=== PATIENT | male | born 1995 | race Caucasian/White ===

== ENCOUNTER 2016-07-22 20:47 | Emergency (ER) | payer OTHER ==
[~2016-07-22] VITALS: Ht 172.7 cm; Wt 59.9 kg
[2016-07-22] MEDS ORDERED: CYCLOBENZAPRINE 10 MG (FLEXERIL) TAB PO STA (23:11)
[2016-07-22] MEDS ORDERED: HYDROcodone/APAP 5 MG/325 MG (LORTAB) TAB PO STA (23:11)
--- NOTE | 2016-07-22 23:17 | ED Back Pain ---
General Chief Complaint: Back Problems Stated Complaint: LOWER BACK PAIN Nursing Triage Note: patient reports intermittent back pain x 9 to 10 years. patient reports pain increased last night. denies taken anything for pain Nursing Sepsis Screen: No Definite Risk History of Present Illness Time Seen by Provider: 23:05 Initial Comments evaluation for chronic and acute low back pain. Patient reports hyperextending his back, approximately 19 years ago he intermittently has recurrence of the back pain. Location: Lumbar Spine Timing/Duration: 2-3 Days Severity: Mild Pain/Injury Location: None Method of Injury: Unknown Modifying Factors: Improves With Immobilization, Improves With Pain Medication (Tylenol with minimal relief, last dose 1400 today), Improves With Rest Associated Symptoms: No loss of bladder control, No loss of bowel control Allergies and Home Medications Allergies Coded Allergies: No Known Drug Allergies (Unverified , 10/24/15) Home Medications Cyclobenzaprine HCl 10 Mg Tablet #12 10 MG PO Q8H PRN PRN sp Prescribed by: MARY AHN on 07/22/162347 Naproxen 500 Mg Tablet #30 500 MG PO BID WITH MEALS PRN PRN PAIN Prescribed by: MARY AHN on 07/22/168 Constitutional: no symptoms reported see HPI EENTM: no symptoms reported see HPI Respiratory: no symptoms reported see HPI Cardiovascular: no symptoms reported see HPI Gastrointestinal: no symptoms reported see HPI Genitourinary: no symptoms reported see HPI Musculoskeletal: see HPI back pain Skin: no symptoms reported see HPI Psychiatric/Neurological: No Symptoms Reported See HPI All Other Systems Reviewed Negative Unless Noted: Yes Past Wekfxaq-Tgfhfa-Kofhyf Hx Patient Social History Alcohol Use: Occasionally Uses Recreational Drug Use: No Smoking Status: Current Everyday Smoker Type Used: Cigarettes Recent Foreign Travel: No Contact w/Someone Who Travel: No Recent Infectious Disease Expo: No Recent Hopitalizations: No Immunizations Up To Date Tetanus Booster (TDap): Less than 5yrs Seasonal Allergies Seasonal Allergies: No Surgeries HX Surgeries: Yes Surgeries: Adenoidectomy, Tonsillectomy Respiratory Hx Respiratory Disorders: No Cardiovascular Hx Cardiac Disorders: No Neurological Hx Neurological Disorders: No Reproductive System Hx Reproductive Disorders: No Genitourinary Hx Genitourinary Disorders: No Gastrointestinal Hx Gastrointestinal Disorders: No Musculoskeletal Hx Musculoskeletal Disorders: Yes Musculoskeletal Disorders: Chronic Back Pain Endocrine Hx Endocrine Disorders: No HEENT HX ENT Disorders: No Cancer Hx Cancer: No Psychosocial Hx Psychiatric Problems: No Integumentary HX Skin/Integumentary Disorder: No Reviewed Nursing Assessment Reviewed/Agree w Nursing PMH: Yes Physical Exam Vital Signs Vital Sign - Last 12Hours 07/22/16 21:32 Temp 98.2 Pulse 89 Resp 18 B/P 109/67 Pulse Ox 100 Capillary Refill : Less Than 3 Seconds General Appearance: No Apparent Distress WD/WN HEENT: PERRL/EOMI TMs Normal Normal ENT Inspection Pharynx Normal Neck: Full Range of Motion Normal Inspection Non Tender Supple Cardiovascular: Regular Rate, Rhythm No Edema Normal Peripheral Pulses Respiratory: Chest Non Tender Lungs Clear Normal Breath Sounds Gastrointestinal: Normal Bowel Sounds No Organomegaly No Pulsatile Mass Non Tender Soft Back: Normal InspectionNo No CVA Tenderness, Decreased Range of Motion Muscle Spasm (paraspinal muscles) Vertebral Tenderness (mid lumbar spine) Extremity: Normal Capillary Refill Normal Inspection Normal Range of Motion Non Tender No Calf Tenderness No Pedal Edema Neurologic/Psychiatric: Alert Oriented x3 No Motor/Sensory Deficits Skin: Normal Color Warm/Dry Lymphatic: No Adenopathy Comments limitation of motion lumbar spine secondary to pain. Normal heel toe gait, full power toe and heel walking. Power V/V L4 to S1. Progress/Results/Core Measures Results/Orders My Orders Orders-MARY AHN Cyclobenzaprine Tablet (Flexeril Tablet) (07/22/16 23:11) Hydrocodone/Apap 5/325 Tablet (Lortab 5 (07/22/16 23:11) Vital Signs/I&O Vital Sign - Last 12Hours 07/22/16 07/22/16 07/22/16 21:32 23:33 23:52 Temp 98.2 98.2 98.2 Pulse 89 87 Resp 18 18 B/P 109/67 Pulse Ox 100 99 Blood Pressure Mean: 81 Progress Note : Time: 23:05 Progress Note initial evaluation completed, will try Flexeril 10 mg and hydrocodone/APAP 5/ 325 mg by mouth with reevaluation after 2340 patient reports improvement in his pain and muscle spasms. Feels he is improved enough to return home Departure Impression Impression: Primary Impression: Back pain Qualified Code: M54.5 - Low back pain Additional Impression: Back strain Qualified Code: S39.012A - Strain of muscle, fascia and tendon of lower back, initial encounter Disposition: 01 HOME, SELF-CARE Condition: Stable Departure-Patient Inst. Decision time for Depature: 23:00 Referrals: NO,LOCAL PHYSICIAN (PCP/Family) Primary Care Physician Patient Instructions: Lumbar Muscle Strain (DC), Low Back Pain (DC) Add. Discharge Instructions: All discharge instructions reviewed with patient and/or family. Voiced understanding. all range of motion to low back, current walking Avoid activities that cause back pain. Establish care with primary care provider, follow up with them for chronic back pain care. return to emergency room for back pain that is not controlled, urinary or bowel retention/incontinence, or change in symptoms Scripts Cyclobenzaprine HCl 10 Mg [id number] Mg PO Q8H PRN sp #12 TAB Ref 0 Prov:MARY AHN 07/22/16 Naproxen (Naprosyn)500 Mg [id number] Mg PO BID WITH MEALS PRN PAIN #30 TAB Ref 0 Prov:MARY AHN 07/22/16 MARY AHN Jul 22, 2016 23:17
[2016-07-22] MEDS ORDERED: CYCL10TA9 PO (23:48)
[2016-07-22] MEDS ORDERED: NAPR500T PO (23:48)
[2016-07-22 23:52] VITALS: BP 111/70
== END 2016-07-22 23:52 | disposition home or self-care (01) ==
LOC: EDUNIT# 20:47 → ER 20:49
DX: S39.012A Strain of muscle, fascia and tendon of lower back, initial encounter (principal); F17.210 Nicotine dependence, cigarettes, uncomplicated; X58.XXXA Exposure to other specified factors, initial encounter; Y99.8 Other external cause status
CPT/HCPCS: 99281

== ENCOUNTER → 2016-08-28 | Outpatient (REF) ==
[~2016-08-28] MED LIST: CYCL10TA9 PO; NAPR500T PO
--- NOTE | 2016-08-28 15:36 | Diagnostic Imaging Report ---
Three views of the lumbar spine. INDICATION: Chronic back pain. FINDINGS: There is satisfactory alignment of the lumbar spine. The vertebral body heights are preserved. Disc heights are also preserved. No significant osteophyte formation is seen. The SI joints appear unremarkable. Paraspinal tissues appear unremarkable. Rudimentary disc is seen at S1/S2 level. IMPRESSION: Unremarkable exam. Dictated by: Dictated on workstation # [id number]
--- NOTE | 2016-08-28 15:37 | Diagnostic Imaging Report ---
EXAMINATION: Three views of the thoracic spine. INDICATION: Chronic back pain. FINDINGS: There is satisfactory alignment of the thoracic spine and the posterior spinal line. The vertebral body heights are preserved. Disc heights are also preserved. No significant osteophyte formation is seen. The paraspinal soft tissues appear unremarkable. IMPRESSION: Unremarkable exam. Dictated by: Dictated on workstation # [id number]
== END | disposition home or self-care (01) ==
LOC: OCC 14:57
PROVIDERS: ATTEND Nurse Practitioner Family
CPT/HCPCS: 72072; 72100

== ENCOUNTER 2016-11-10 18:05 | Emergency (ER) | payer OTHER ==
[~2016-11-10] VITALS: Ht 175.3 cm; Wt 63.5 kg
--- NOTE | 2016-11-10 18:19 | ED Upper Extremity ---
General Chief Complaint: Upper Extremity Stated Complaint: L HAND INJ Source: patient Exam Limitations: no limitations History of Present Illness Time seen by provider: 18:18 Initial Comments To ER from home with reports of pain and deformity to the left hand after punching a wall. This occurred earlier today. Onset: just prior to arrival Severity: moderate Pain/Injury Location: left hand Method of Injury: direct blow Modifying Factors: Worse With Movement Allergies and Home Medications Allergies Coded Allergies: No Known Drug Allergies (Unverified , 10/24/15) Home Medications No Active Prescriptions or Reported Meds Constitutional: see HPI EENTM: see HPI Respiratory: no symptoms reported Cardiovascular: no symptoms reported Genitourinary: no symptoms reported Musculoskeletal: see HPI Skin: no symptoms reported Psychiatric/Neurological: No Symptoms Reported Past Efyjutq-Gmexak-Axsckz Hx Patient Social History Alcohol Use: Occasionally Uses Recreational Drug Use: No Type Used: Cigarettes Recent Foreign Travel: No Contact w/Someone Who Travel: No Recent Hopitalizations: No Immunizations Up To Date Tetanus Booster (TDap): Less than 5yrs Seasonal Allergies Seasonal Allergies: No Surgeries HX Surgeries: Yes Surgeries: Adenoidectomy, Tonsillectomy Respiratory Hx Respiratory Disorders: No Cardiovascular Hx Cardiac Disorders: No Neurological Hx Neurological Disorders: No Reproductive System Hx Reproductive Disorders: No Genitourinary Hx Genitourinary Disorders: No Gastrointestinal Hx Gastrointestinal Disorders: No Musculoskeletal Hx Musculoskeletal Disorders: Yes Musculoskeletal Disorders: Chronic Back Pain Endocrine Hx Endocrine Disorders: No HEENT HX ENT Disorders: No Cancer Hx Cancer: No Psychosocial Hx Psychiatric Problems: No Integumentary HX Skin/Integumentary Disorder: No Physical Exam Vital Signs Vital Sign - Last 12Hours 11/10/16 18:15 Temp 97.4 Pulse 98 Resp 18 B/P (MAP) 116/72 Pulse Ox 94 Capillary Refill : General Appearance: WD/WN, no apparent distress HEENT: PERRL/EOMI, normal ENT inspection Neck: non-tender, full range of motion Respiratory: no respiratory distress, no accessory muscle use Gastrointestinal: normal bowel sounds, non tender, soft Back: normal inspection Elbow/Forearm: normal inspection, non-tender, Left Wrist: Yes normal inspection, Yes non-tender Hand: Left, deformity, limited ROM, soft tissue tenderness Neurologic/Tendon: normal sensation, normal motor functions, normal tendon functions Neurologic/Psychiatric: alert, normal mood/affect, oriented x 3 Skin: normal color, warm/dry Progress/Results/Core Measures Results/Orders My Orders Orders - WALDEMAR ESPINO APRN Hand, Left, 3 Views (11/10/16 18:16) Vital Signs/I&O Vital Sign - Last 12Hours 11/10/16 18:15 Temp 97.4 Pulse 98 Resp 18 B/P (MAP) 116/72 Pulse Ox 94 Departure Impression Impression: Primary Impression: Contusion of hand Disposition: HOME, SELF-CARE Condition: Stable Decision to Admit Reason: Admit from ER (General) Departure-Patient Inst. Decision time for Depature: 18:36 Referrals: NO,LOCAL PHYSICIAN (PCP/Family) Primary Care Physician Patient Instructions: Contusion (DC) Add. Discharge Instructions: 1. Elevate the hand as much as possible 2. Return to ER for any concerns 3. Tylenol Motrin for pain All discharge instructions reviewed with patient and/or family. Voiced understanding. Scripts No Active Prescriptions or Reported Meds WALDEMAR ESPINO APRN Nov 10, 2016 18:19
--- NOTE | 2016-11-10 19:00 | Diagnostic Imaging Report ---
INDICATION: Injury, hand pain. EXAMINATION: Left hand at 6:21 p.m. Three views were obtained. FINDINGS: The previous exam of 09/07/2007 noted a slightly displaced fracture of the distal phalanx of the fourth digit. That fracture has healed with some residual deformity. There is no acute bony abnormality identified. There does seem be soft tissue edema along the dorsum of the hand, however. IMPRESSION: There is soft tissue edema along the dorsum of the hand but there is no evidence for an acute bony abnormality. Dictated by: Dictated on workstation # [id number]
[2016-11-10 19:01] VITALS: BP 110/64
--- OUTSIDE RECORDS SUMMARY | 2016-11-13 13:46 | XMS REPORT ---
Author Author NIKA SHARMA Organization [employer] Address Unknown Phone Unavailable Care Team Providers Care Claims Correspondence Clerk Name Role Phone NIKA SHARMA CP Unavailable Allergies, Adverse Reactions, Alerts Substance Reaction Event Type N.K.D.A. Info Not Available Non Drug Allergy Problems Problem Type Condition Code Onset Dates Condition Status Assessment Dental caries K02.9 Active Assessment Dental examination Z01.20 Active Medications Medication Code System Code Instructions Start Date End Date Status Dosage [facility] [id number] 5-325 MG Orally every 6 hrs Mar 09, 2015 Mar 13, 2015 1 tablet as needed Procedures Procedure Coding System Code Date INTRAORL-PERIAPICAL EA ADD FILM CPT-4 D0230 Mar 09, 2015 EXTRAC ERUPTED TOOTH/EXPOSED ROOT CPT-4 D7140 Mar 09, 2015 INTRAORL-PERIAPICAL 1 FILM 24633 CPT-4 D0220 Mar 09, 2015 Vital Signs Date/Time: Mar 09, 2015 Blood Pressure Diastolic 84 mmHg Blood Pressure Systolic 133 mmHg Results No Known Results Summary Purpose [employer] Submission
== END 2016-11-10 19:01 | disposition home or self-care (01) ==
LOC: EDUNIT# 18:05 → ER 18:07
DX: S60.222A Contusion of left hand, initial encounter (principal); F17.210 Nicotine dependence, cigarettes, uncomplicated; Z90.89 Acquired absence of other organs; W22.01XA Walked into wall, initial encounter
CPT/HCPCS: 73130; 99282

== ENCOUNTER 2017-01-05 22:54 | Emergency (ER) | payer OTHER ==
[~2017-01-05] VITALS: Ht 172.7 cm; Wt 58.1 kg
--- NOTE | 2017-01-05 23:33 | ED Upper Extremity ---
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 He says he is having quite a bit of pain. He also has some numbness and tingling in the fourth and fifth digits. He has a little bit of swelling in his elbow and tenderness along the distal portion of his humerus. But otherwise can move his arm okay. He has not taken have broken Tylenol or ice for until arriving to the ER. No history of trauma to that arm. He is right-handed. Allergies and Home Medications Allergies Coded Allergies: No Known Drug Allergies (Unverified , 10/24/15) Home Medications No Active Prescriptions or Reported Meds Constitutional: No chills, No diaphoresis, No fever EENTM: No blurred vision, No double vision Respiratory: No cough Cardiovascular: No chest pain, No palpitations Gastrointestinal: No abdominal pain, No nausea Genitourinary: No discharge, No dysuria Musculoskeletal: see HPI, joint pain Skin: No pruritus, No rash, other (bruising) Psychiatric/Neurological: Denies Numbness, Denies Paresthesia Past Iqvuinu-Gfcroh-Ondzwb Hx Patient Social History Alcohol Use: Rarely Uses Recreational Drug Use: No Smoking Status: Current Everyday Smoker Type Used: Cigarettes Recent Foreign Travel: No Contact w/Someone Who Travel: No Recent Infectious Disease Expo: No Recent Hopitalizations: No Physical Abuse: No Sexual Abuse: No Immunizations Up To Date Tetanus Booster (TDap): Less than 5yrs Seasonal Allergies Seasonal Allergies: No Surgeries History of Surgeries: Yes Surgeries: Adenoidectomy, Tonsillectomy Respiratory History of Respiratory Disorde: No Cardiovascular History of Cardiac Disorders: No Neurological History of Neurological Disord: No Reproductive System Hx Reproductive Disorders: No Gastrointestinal History of Gastrointestinal Di: No Musculoskeletal History of Musculoskeletal Dis: Yes Musculoskeletal Disorders: Chronic Back Pain Endocrine History of Endocrine Disorders: No Cancer History of Cancer: No Psychosocial History of Psychiatric Problem: No Suicide Risk Score: 0 Integumentary History of Skin or Integumenta: No Physical Exam Vital Signs Vital Sign - Last 12Hours 01/05/17 23:10 Temp 98.0 Pulse 79 Resp 18 B/P (MAP) 114/71 Pulse Ox 99 Capillary Refill : Less Than 3 Seconds General Appearance: WD/WN, no apparent distress HEENT: PERRL/EOMI Neck: non-tender, normal inspection Cardiovascular: normal peripheral pulses, regular rate, rhythm, no edema Respiratory: lungs clear, normal breath sounds Gastrointestinal: non tender, soft Elbow/Forearm: normal ROM, Left, bone tenderness, ecchymosis, swelling Wrist: Yes normal inspection, Yes non-tender, Yes no evidence of injury, Yes normal ROM, Yes abrasions Hand: normal inspection, non-tender, no evidence of injury, normal ROM Neurologic/Tendon: normal sensation, normal motor functions, normal tendon functions, responds to pain Neurologic/Psychiatric: no motor/sensory deficits, alert, oriented x 3 Skin: normal color, warm/dry Progress/Results/Core Measures Results/Orders My Orders Orders - KAYLA VINCENT Humerus, Left, 2 Views (01/05/17 23:31) Finger(S) (01/05/17 23:31) Vital Signs/I&O Vital Sign - Last 12Hours 01/05/17 01/06/17 23:10 00:31 Temp 98.0 Pulse 79 78 Resp 18 18 B/P (MAP) 114/71 Pulse Ox 99 98 Blood Pressure Mean: 85 Diagnostic Imaging Diagonstic Imaging: Xray Plain Films/CT/US/NM/MRI: other (left humerus and hand) Comments No acute osseous adamantly seen on left humerus 2 view x-ray. Left fingers may show a very minor avulsion dorsal fracture of the fourth digit distal phalangeal distal tip. Reviewed: Reviewed by Me Departure Impression Impression: Primary Impression: Fracture of phalanx of hand Qualified Codes: S62.609A - Fracture of unspecified phalanx of unspecified finger, initial encounter for closed fracture Disposition: 01 HOME, SELF-CARE Condition: Stable Departure-Patient Inst. Decision time for Depature: 00:27 Referrals: NO,LOCAL PHYSICIAN (PCP/Family) Primary Care Physician Patient Instructions: Finger Fracture (DC) Add. Discharge Instructions: Wear the splint for 2 weeks and follow up with her primary care physician as needed. Do not lift more than 20 pounds in the next 2 weeks with your left arm. Ice the area and use Tylenol 1000 mg or ibuprofen 800 mg every 8 hours as needed to control the pain. If your pain swelling or redness is getting worse despite these efforts return to your physician or to the ER. All discharge instructions reviewed with patient and/or family. Voiced understanding. Scripts No Active Prescriptions or Reported Meds Work/School Note: Work Release Form Date Seen in the Emergency Department: Jan 06, 2017 Return to Work: Jan 07, 2017 Other Restrictions Listed Below: Do not lift above 20 pounds with your left arm for the next 2 weeks. KAYLA VINCENT Jan 05, 2017 23:33
[2017-01-06 00:31] VITALS: BP 114/71
--- NOTE | 2017-01-06 08:21 | Diagnostic Imaging Report ---
INDICATION: Left arm pain. COMPARISON: None. FINDINGS: 2 views of the left humerus show no fractures, dislocations, or other acute bony abnormalities identified. Joint spaces are well maintained throughout. The soft tissues appear unremarkable. No radiopaque foreign bodies are identified. IMPRESSION: No acute fractures or dislocations of the left humerus. Dictated by: Dictated on workstation # [id number]
--- NOTE | 2017-01-06 08:45 | Diagnostic Imaging Report ---
INDICATION: Caught fingers in drain snake at work. Pain in upper left arm and third and fourth digits. COMPARISON: 09/07/2007, and 11/10/2016. COMPARISON: None. FINDINGS: 3 views of the left third and fourth digits show no fractures, dislocations, or other acute bony abnormalities identified. Joint spaces are well maintained throughout. The soft tissues appear unremarkable. No radiopaque foreign bodies are identified. IMPRESSION: No acute fractures or dislocations of the left third and fourth digits. Dictated by: Dictated on workstation # [id number]
== END 2017-01-06 00:33 | disposition home or self-care (01) ==
LOC: EDUNIT# 22:54 → ER 22:56
DX: S62.635A Displaced fracture of distal phalanx of left ring finger, initial encounter for closed fracture (principal); G89.29 Other chronic pain; M54.9 Dorsalgia, unspecified; F17.210 Nicotine dependence, cigarettes, uncomplicated; Z90.89 Acquired absence of other organs; W59.1 Contact with nonvenomous snakes; Y99.0 Civilian activity done for income or pay
CPT/HCPCS: 73060; 73140; 99282

== ENCOUNTER 2018-10-05 22:55 | Emergency (ER) | payer SELFPAY ==
[~2018-10-05] VITALS: Ht 172.7 cm; Wt 65.8 kg
[~2018-10-05 22:55] MED LIST changes: +NAPR-1071 PO; -NAPR500T PO
[2018-10-05] MEDS ORDERED: TETANUS,DIPTH,PERTUSS P/F (BOOSTRIX) 0.5 ML VIAL IM ONE (23:15)
--- NOTE | 2018-10-05 23:37 | ED Fall/Injury ---
General Chief Complaint: Upper Extremity Stated Complaint: L ARM LACERATION,L HAND INJ Nursing Triage Note: PT STATES THAT HE HAD A FALL PRIOR TO ARRIVAL. PT STATES HE TRIPPED UP THE STAIRS AND LANDED ON LEFT ELBOW/HAND. PT DENIES LOC OR HITTING HEAD. Source: patient Exam Limitations: no limitations History of Present Illness Date Seen by Provider: October 05, 2018 Time Seen by Provider: 22:58 Initial Comments This 23-year-old man presents to the emergency room with injuries to his left hand and elbow after slipping and falling on the stairs of his porch. He has be en drinking alcohol tonight but is alert and oriented. He struck his elbow in his hand but denies any other injury. He did not strike his head or neck. There was no loss of consciousness. He primarily complains of pain in the distal central hand where he has swelling on the dorsal aspect. He has pain with range of motion. There is no abrasion over his elbow and he has some te nderness over the olecranon. He does not know when his last tetanus immunization was. Allergies and Home Medications Allergies Coded Allergies: No Known Drug Allergies (Unverified , 10/24/15) Home Medications No Active Prescriptions or Reported Meds Patient Home Medication List Home Medication List Reviewed: Yes Review of Systems Review of Systems Constitutional: see HPI Eyes: No Symptoms Reported Ears, Nose, Mouth, Throat: no symptoms reported Respiratory: no symptoms reported Cardiovascular: no symptoms reported Gastrointestinal: no symptoms reported Genitourinary: no symptoms reported Musculoskeletal: see HPI Skin: see HPI Psychiatric/Neurological: No Symptoms Reported Past Focztvl-Ixobjt-Oaviii Hx Past Med/Social Hx: Reviewed Nursing Past Med/Soc Hx Patient Social History Alcohol Use: Regular Use Alcohol Beverage of Choice: Beer Recreational Drug Use: No Smoking Status: Current Everyday Smoker Type Used: Cigarettes Recent Foreign Travel: No Contact w/Someone Who Travel: No Recent Infectious Disease Expo: No Recent Hopitalizations: No Physical Abuse: No Sexual Abuse: No Mistreated: No Fear: No Immunizations Up To Date Tetanus Booster (TDap): Less than 5yrs Seasonal Allergies Seasonal Allergies: No Past Medical History Surgeries: Yes Adenoidectomy, Tonsillectomy Respiratory: No Cardiac: No Neurological: No Reproductive Disorders: No Gastrointestinal: No Musculoskeletal: Yes Chronic Back Pain Endocrine: No Cancer: No Psychosocial: No Integumentary: No Physical Exam Vital Signs Vital Signs - First Documented 10/05/18 23:05 Temp 97.6 Pulse 117 Resp 18 B/P (MAP) 124/77 (93) Pulse Ox 95 Capillary Refill : Less Than 3 Seconds Height, Weight, BMI Height: 5'8.00" Weight: 145lbs. oz. 65.570815iu; BMI Method:Stated General Appearance: WD/WN, no apparent distress, thin HEENT: PERRL/EOMI, normal ENT inspection Neck: normal inspection Cardiovascular: regular rate, rhythm, no edema, no murmur Respiratory: lungs clear, normal breath sounds, no respiratory distress, no accessory muscle use Extremities: other (ecchymosis, tenderness, and swelling over the dorsal aspect of the distal third and fourth metacarpals on the left. Pain with flexion and extension of the fingers. Distal sensation and capillary refill intact. Tenderness over the olecranon. Abrasions over the elbow. No significant pain with range of motion in the elbow or with rotation of the wrist. No tenderness or pain in the wrist. 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, no motor/sensory deficits, alert, normal mood/affect, oriented x 3 Skin: normal color, warm/dry, ecchymosis Maritza Coma Score Best Eye Response: (4) Open Spontaneously Best Verbal Response: (5) Oriented Best Motor Response: (6) Obeys Commands [place] Total: 15 Progress/Results/Core Measures Results/Orders My Orders Orders - JAVIER ROCHE MD Dipht,Pertuss(Acell),Tet Adult (Boostrix (10/05/18 23:15) Elbow, Left, 3 Views (10/05/18 23:04) Hand, Left, 3 Views (10/05/18 23:04) Medications Given in ED Current Medications Medications Dose Ordered Sig/Oli Route Start Time Stop Time Status Last Admin Dose Admin Diphtheria/ Tetanus/Acell Pertussis 0.5 ml ONCE ONCE IM 10/05/18 23:15 10/05/18 23:16 DC 10/05/18 23:18 0.5 ML Vital Signs/I&O 10/05/18 23:05 Temp 97.6 Pulse 117 Resp 18 B/P (MAP) 124/77 (93) Pulse Ox 95 Blood Pressure Mean: 93 Progress Progress Note : Progress Note No bony injuries were identified on the x-rays. Patient received a tetanus immunization. The abrasions on the left elbow were scrubbed with chlorhexidine and water. They were dressed with antibiotic ointment. Diagnostic Imaging Diagonstic Imaging: Xray Plain Films/CT/US/NM/MRI: hand Comments Hand x-ray viewed by me. Report not yet available. No acute dislocations or bony injuries identified. Diagonstic Imaging: Xray Plain Films/CT/US/NM/MRI: elbow Comments Elbow x-ray viewed by me. There was a questionable deformity on the oblique view. Images were sent to [facility] and were read as negative. [facility] report reviewed. Departure Impression Primary Impression: Hand contusion Qualified Codes: S60.222A - Contusion of left hand, initial encounter Additional Impressions: Elbow contusion Qualified Codes: S50.02XA - Contusion of left elbow, initial encounter Elbow abrasion Qualified Codes: S50.312A - Abrasion of left elbow, initial encounter Fall on stairs Qualified Codes: W10.9XXA - Fall (on) (from) unspecified stairs and steps, initial encounter Disposition: HOME, SELF-CARE Condition: Improved Admissions Decision to Admit Reason: Admit from ER (Trauma) Departure-Patient Inst. Decision time for Depature: 23:46 Referrals: NO,LOCAL PHYSICIAN (PCP/Family) Primary Care Physician Patient Instructions: Contusion (DC) Add. Discharge Instructions: Increase level of activity as pain allows. Apply ice in 20 minute intervals to treat pain and swelling. You may take Ibuprofen up to 600 mg every 6 hours as needed and Tylenol (acetaminophen) up to 1000 mg every 6 hours as needed for pain. Follow-up with your primary care provider or the ER if not improving as expected or if symptoms worsen. All discharge instructions reviewed with patient and/or family. Voiced understanding. Scripts No Active Prescriptions or Reported Meds JAVIER ROCHE MD October 05, 2018 23:37
[2018-10-06 00:07] VITALS: BP 124/77
--- NOTE | 2018-10-06 06:59 | Diagnostic Imaging Report ---
INDICATION: Injury with pain FINDINGS: There is soft tissue swelling over the dorsum of the hand at the levels of the distal metacarpals and MCPs. No underlying fracture, however, can be identified. Carpus, the distal radius and ulna all appeared intact. The phalanges intact. IMPRESSION: Dorsal swelling but no identifiable fracture. Dictated by: Dictated on workstation # [id number]
--- NOTE | 2018-10-06 07:01 | Diagnostic Imaging Report ---
INDICATION: Fall, pain FINDINGS: No pathologically displaced fat pad. The articular surface is smooth. The alignment anatomic. No fracture could be identified. IMPRESSION: No acute finding radiographically apparent. Dictated by: Dictated on workstation # [id number]
== END 2018-10-06 00:08 | disposition home or self-care (01) ==
LOC: EDUNIT# 22:55 → ER 22:57
DX: S60.222A Contusion of left hand, initial encounter (principal); S50.312A Abrasion of left elbow, initial encounter; F10.10 Alcohol abuse, uncomplicated; F17.210 Nicotine dependence, cigarettes, uncomplicated; R40.2142 Coma scale, eyes open, spontaneous, at arrival to emergency department; R40.2252 Coma scale, best verbal response, oriented, at arrival to emergency department; R40.2362 Coma scale, best motor response, obeys commands, at arrival to emergency department; Z23 Encounter for immunization; Z90.89 Acquired absence of other organs; W10.8XXA Fall (on) (from) other stairs and steps, initial encounter
CPT/HCPCS: 73080; 73130; 90471; 90715

== ENCOUNTER 2018-12-08 22:28 | Emergency (ER) | payer SELFPAY ==
[~2018-12-08] VITALS: Ht 175.3 cm; Wt 63.5 kg
--- NOTE | 2018-12-08 22:40 | ED Upper Extremity ---
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 Tetanus vaccine was updated earlier this year. Able to fully flex and extend his finger Onset: just prior to arrival Severity: mild Pain/Injury Location: right 2nd finger Method of Injury: direct blow Modifying Factors: Worse With Movement Allergies and Home Medications Allergies Coded Allergies: No Known Drug Allergies (Unverified , 10/24/15) Home Medications No Active Prescriptions or Reported Meds Patient Home Medication List Home Medication List Reviewed: Yes Review of Systems Constitutional: see HPI EENTM: see HPI Respiratory: no symptoms reported Cardiovascular: no symptoms reported Genitourinary: no symptoms reported Musculoskeletal: no symptoms reported Skin: see HPI Psychiatric/Neurological: No Symptoms Reported Past Enrkkwc-Nxalut-Boiyop Hx Patient Social History Alcohol Beverage of Choice: Beer Type Used: Cigarettes Recent Foreign Travel: No Contact w/Someone Who Travel: No Recent Hopitalizations: No Immunizations Up To Date Tetanus Booster (TDap): Less than 5yrs Seasonal Allergies Seasonal Allergies: No Past Medical History Surgeries: Yes Adenoidectomy, Tonsillectomy Respiratory: No Cardiac: No Neurological: No Reproductive Disorders: No Gastrointestinal: No Musculoskeletal: Yes Chronic Back Pain Endocrine: No Cancer: No Psychosocial: No Integumentary: No Physical Exam Vital Signs Capillary Refill : Height, Weight, BMI Height: 5'8.00" Weight: 145lbs. oz. 65.441124ny; BMI Method:Stated General Appearance: WD/WN, no apparent distress HEENT: PERRL/EOMI, normal ENT inspection Neck: non-tender, full range of motion Respiratory: no respiratory distress, no accessory muscle use Shoulder: normal inspection, non-tender Elbow/Forearm: normal inspection, non-tender Wrist: Yes normal inspection, Yes non-tender Hand: Right, laceration (0.5 cm laceration dorsal aspect middle phalanx pointer finger right hand. He is left-hand dominant. Normal capillary refill and sensation distally. He is able to flex and extend his fingers.) Neurologic/Tendon: normal sensation, normal motor functions, normal tendon functions Neurologic/Psychiatric: alert, normal mood/affect, oriented x 3 Skin: normal color, warm/dry Procedures/Interventions Wound Location: Upper Extremities Wound Length (cm): 0.5 Wound's Depth, Shape: linear Wound Explored: clean Other Closure Supply: Wound Adhesive Departure Impression Primary Impression: Finger laceration Qualified Codes: S61.210A - Laceration without foreign body of right index finger without damage to nail, initial encounter Disposition: HOME, SELF-CARE Condition: Stable Departure-Patient Inst. Decision time for Depature: 22:40 Referrals: NO,LOCAL PHYSICIAN (PCP/Family) Primary Care Physician Patient Instructions: Laceration Repair With Glue (DC) Scripts No Active Prescriptions or Reported Meds WALDEMAR ESPINO APRN Dec 08, 2018 22:40
[2018-12-08 22:48] VITALS: BP 100/66
== END 2018-12-08 22:50 | disposition home or self-care (01) ==
LOC: EDUNIT# 22:28 → ER 22:30
DX: S61.210A Laceration without foreign body of right index finger without damage to nail, initial encounter (principal); Z90.89 Acquired absence of other organs; W26.8XXA Contact with other sharp object(s), not elsewhere classified, initial encounter

== ENCOUNTER 2019-01-29 22:05 | Emergency (ER) | payer SELFPAY, OTHER | END 2019-01-29 22:38 | disposition home or self-care (01) | LOC: ER 22:05 ==

== ENCOUNTER 2019-05-30 19:16 | Emergency (ER) | payer SELFPAY ==
[~2019-05-30] VITALS: Ht 177.8 cm; Wt 63.5 kg
[2019-05-30] MEDS ORDERED: ACETAMINOPHEN 325 MG TABLET PO STA (19:39)
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
[2019-05-30] MEDS ORDERED: CEPH500T PO ×2 (19:56→20:26)
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
[2019-05-30] MEDS ORDERED: CEPHALEXIN 250 MG (KEFLEX) CAP PO STA (20:18)
[2019-05-30 20:29] VITALS: BP 123/79
== END 2019-05-30 20:29 | disposition home or self-care (01) ==
LOC: EDUNIT# 19:16 → ER 19:17
DX: S01.412A Laceration without foreign body of left cheek and temporomandibular area, initial encounter (principal); R40.2142 Coma scale, eyes open, spontaneous, at arrival to emergency department; R40.2252 Coma scale, best verbal response, oriented, at arrival to emergency department; R40.2362 Coma scale, best motor response, obeys commands, at arrival to emergency department; Z77.22 Contact with and (suspected) exposure to environmental tobacco smoke (acute) (chronic); Z90.89 Acquired absence of other organs; Y04.8XXA Assault by other bodily force, initial encounter
CPT/HCPCS: 70486

== ENCOUNTER 2022-08-12 21:02 | Emergency (ER) | payer BC ==
[~2022-08-12] VITALS: Ht 172 cm; Wt 65.9 kg
[~2022-08-12 21:02] MED LIST changes: +CEPH500T PO; +CYCL10TA25 PO; -CYCL10TA9 PO
[2022-08-12] MEDS ORDERED: LIDOCAINE 1% INJ 10 ML VIAL INJ ONE (21:30)
[2022-08-12] MEDS ORDERED: TETANUS,DIPTH,PERTUSS P/F (BOOSTRIX) 0.5 ML VIAL IM ONE (21:30)
--- NOTE | 2022-08-12 21:31 | ED Head Injury ---
General Chief Complaint: Head/Cervical Problems Stated Complaint: FALL HEAD INJURY Nursing Triage Note: PATIENT STATES TRIPPED FELL INTO DOOR JAM, LACERATION MIDDLE TOP OF HEAD. STATES SAW SPOTS, BUT DID NOT PASSOUT Source: patient Exam Limitations: no limitations History of Present Illness Date Seen by Provider: Aug 12, 2022 Time Seen by Provider: 21:30 Initial Comments Patient is a 27-year-old male who presents ED with a laceration to his frontal scalp. This occurred around 850. Patient tripped at home hitting the corner of the house with a plastic lining. This resulted in a inch and a half laceration with adipose involvement. No loss of conscious, vomiting, visual changes. Reports some mild head pain at this time. Denies taking thing for pain. Up-to-date on his tetanus. Bleeding controlled with direct pressure. Patient denies neck pain, chest pain, shortness of breath, cough, vomiting, diarrhea. Allergies and Home Medications Allergies Coded Allergies: No Known Drug Allergies (Unverified , 05/30/19) Patient Home Medication List Home Medication List Reviewed: Yes Cephalexin (Cephalexin) 500 Mg Tablet, 500 MG PO TID Prescribed by: MARY AHN on 05/30/192025 Review of Systems Review of Systems Constitutional: No chills, No diaphoresis, No malaise, No weakness Eyes: Denies Drainage, Denies Decreased Acuity, Denies Pain, Denies Photophobia, Denies Previous Injury, Denies Shadows Ears, Nose, Mouth, Throat: denies ear pain, denies ear discharge Respiratory: No cough Cardiovascular: No chest pain Gastrointestinal: No abdominal pain, No diarrhea, No nausea, No vomiting Genitourinary: No decreased output, No discharge Musculoskeletal: No back pain, No joint pain Skin: change in color, other (laceration scalp) All Other Systems Reviewed Negative Unless Noted: Yes Past Pbbfvbt-Wipgcp-Uopnjx Hx Patient Social History Tobacco Use?: Yes Tobacco type used: Cigarettes Smoking Status: Current Everyday Smoker Substance use?: No Alcohol Use?: Yes Alcohol type: Beer Alcohol Frequency: Daily Immunizations Up To Date Tetanus Booster (TDap): Less than 5yrs Influenza Vaccine Up-to-Date: No; Not Current First/Initial COVID19 Vaccinat: NA Second COVID19 Vaccination Carl: NA Seasonal Allergies Seasonal Allergies: No Past Medical History Surgeries: Yes Adenoidectomy, Tonsillectomy Respiratory: No Cardiac: No Neurological: No Reproductive Disorders: No Genitourinary: No Gastrointestinal: No Musculoskeletal: Yes Chronic Back Pain Endocrine: No HEENT: No Cancer: No Psychosocial: No Integumentary: No Blood Disorders: No Physical Exam Vital Signs Vital Signs - First Documented 08/12/22 21:12 Temp 35.9 Pulse 84 Resp 20 B/P (MAP) 115/76 (89) Pulse Ox 98 O2 Delivery Room Air Capillary Refill : Less Than 3 Seconds Height, Weight, BMI Height: 5'9.00" Weight: 140lbs. oz. 63.815706gr; 22.00 BMI Method:Stated General Appearance: WD/WN, no apparent distress HEENT: PERRL/EOMI, normal ENT inspection, TMs normal, pharynx normal Neck: non-tender, full range of motion, supple, normal inspection Cardiovascular: regular rate, rhythm, no edema, no gallop, no JVD, no murmur Respiratory: chest non-tender, lungs clear, normal breath sounds, no respiratory distress, no accessory muscle use Gastrointestinal: normal bowel sounds, non tender, soft, no organomegaly, no pulsatile mass Back: normal inspection, no CVA tenderness, no vertebral tenderness Extremities: normal range of motion, non-tender, normal inspection, no pedal edema, no calf tenderness Crainal Nerves: normal hearing, normal speech, PERRL Coordination/Gait: normal finger to nose, normal gait Motor/Sensory: no motor deficit, no sensory deficit Skin: other (5 cm laceration to the frontal scalp.) Grassflat Coma Score Best Eye Response: (4) Open Spontaneously Best Verbal Response: (5) Oriented Best Motor Response: (6) Obeys Commands Maritza Total: 15 Procedures/Interventions Wound Location: Scalp Wound Length (cm): 5 Wound's Depth, Shape: superficial, sub Q Wound Explored: clean Irrigated w/ Saline (ccs): 200 Betadine Prep?: Yes Anesthesia: 1% Lidocaine Volume Anesthetic (ccs): 4 Wound Debrided: minimal Staple Repair: Stapler 35W Suture Size: 5-0 Number of Sutures: 7 Layer Closure?: 1 Sterile Dressing Applied?: Yes Progress/Results/Core Measures Results/Orders My Orders Orders - TEMITOPE ARTIS Lidocaine 1% Inj 10 Ml (Xylocaine 1% Inj (08/12/22 21:30) Dipht,Pertuss(Acell),Tet Adult (Boostrix (08/12/22 21:30) Medications Given in ED Current Medications Medications Dose Ordered Sig/Oli Route Start Time Stop Time Status Last Admin Dose Admin Diphtheria/ Tetanus/Acell Pertussis 0.5 ml ONCE ONCE IM 08/12/22 21:30 08/12/22 21:31 DC 08/12/22 21:43 0.5 ML Lidocaine HCl 10 ml ONCE ONCE INJ 08/12/22 21:30 08/12/22 21:31 DC 08/12/22 21:41 10 ML Vital Signs/I&O 08/12/22 08/12/22 21:12 22:07 Temp 35.9 Pulse 84 Resp 20 B/P (MAP) 115/76 (89) 156/78 Pulse Ox 98 O2 Delivery Room Air Blood Pressure Mean: 89 Departure Communication (PCP) Patient has a 5 cm laceration to the frontal scalp. This occurred when he tr ipped and fell hitting the corner of the house that was plastic. No loss of conscious, vomiting, worsening hip pain. Neuro exam unremarkable. GCS 15. Alert and orient x3. Mechanical fall. No evidence of crepitus or step-off on exam. No active bleeding. Updated his tetanus. 7 nicolette were placed here in the ED. No imaging at this time. Lester CT head rules low risk. Discussed all results with patient. Patient did have a mild headache but refused anything for pain. Recommend staple removed in 8 days. Neosporin topical twice a day. Okay to shower. If any worsening symptoms such as increased head pain, vomiting, visual changes, change in mental status return back to ED. Patient agrees with plan of action. Impression Primary Impression: Scalp laceration Disposition: HOME, SELF-CARE Condition: Stable Departure-Patient Inst. Decision time for Depature: 21:57 Referrals: [facility] [place] NO,LOCAL PHYSICIAN (PCP) Primary Care Physician Patient Instructions: Laceration Repair With Nicolette ED Add. Discharge Instructions: Applied Neosporin to the wound. Remove nicolette in 8 days. If any worsening symptoms such as severe head pain, vomiting, change in mental status return back to ED. Tylenol ibuprofen for headache. Recommend rest if symptomatic. Follow- up with PCP 3 to 4 days for reevaluation All discharge instructions reviewed with patient and/or family. Voiced understanding. Work/School Note: Work Release Form Date Seen in the Emergency Department: Aug 12, 2022 Return to Work: Aug 14, 2022 TEMITOPE ARTIS Aug 12, 2022 21:31
[2022-08-12 22:07] VITALS: BP 156/78
== END 2022-08-12 22:07 | disposition home or self-care (01) ==
LOC: EDUNIT# 21:02 → ER 21:06
DX: S01.01XA Laceration without foreign body of scalp, initial encounter (principal); F17.210 Nicotine dependence, cigarettes, uncomplicated; Z28.310 Unvaccinated for COVID-19; Z23 Encounter for immunization; W01.198A Fall on same level from slipping, tripping and stumbling with subsequent striking against other object, initial encounter; Y92.009 Unspecified place in unspecified non-institutional (private) residence as the place of occurrence of the external cause
CPT/HCPCS: 12002; 90715

== ENCOUNTER 2022-10-14 21:34 | Emergency (ER) | payer BC ==
[~2022-10-14] VITALS: Ht 175.3 cm; Wt 65.8 kg
--- NOTE | 2022-10-14 21:45 | ED Lower Extremity ---
General Chief Complaint: Lower Extremity Stated Complaint: LEFT FOOT PAIN History of Present Illness Date Seen by Provider: Oct 14, 2022 Time Seen by Provider: 21:45 Initial Comments 27-year-old male presents with some cracking and blistering on the bottom of his feet. He reports he has been having significant issues with sweaty feet especially for the last 2 weeks. He just went to have it checked out because he went to make sure there is no infection. Patient states that he has a lot more issues with his left foot than his right. He has tried some powders but they help temporarily. He has been trying tennis shoes over boots. Allergies and Home Medications Allergies Coded Allergies: No Known Drug Allergies (Unverified , 05/30/19) Patient Home Medication List Home Medication List Reviewed: Yes Cephalexin (Cephalexin) 500 Mg Tablet, 500 MG PO TID Prescribed by: MARY AHN on 05/30/192025 Review of Systems Constitutional: no symptoms reported EENTM: no symptoms reported Respiratory: no symptoms reported Cardiovascular: no symptoms reported Gastrointestinal: no symptoms reported Genitourinary: no symptoms reported Musculoskeletal: see HPI Skin: see HPI Past Yqxtics-Iiqfgy-Azwecv Hx Immunizations Up To Date Tetanus Booster (TDap): Less than 5yrs First/Initial COVID19 Vaccinat: NA Second COVID19 Vaccination Carl: NA Seasonal Allergies Seasonal Allergies: No Past Medical History Surgeries: Yes Adenoidectomy, Tonsillectomy Respiratory: No Cardiac: No Neurological: No Reproductive Disorders: No Genitourinary: No Gastrointestinal: No Musculoskeletal: Yes Chronic Back Pain Endocrine: No HEENT: No Cancer: No Psychosocial: No Integumentary: No Blood Disorders: No Physical Exam Vital Signs Capillary Refill : Height, Weight, BMI Height: 5'9.00" Weight: 140lbs. oz. 63.431780aq; 22.00 BMI Method:Stated General Appearance: WD/WN, no apparent distress Neck: full range of motion, supple Cardiovascular: normal peripheral pulses, regular rate, rhythm Respiratory: lungs clear, normal breath sounds Gastrointestinal: non tender Feet: left foot other (Mild blistering and soft tissue consistent with "wa terlogged") Neurologic/Psychiatric: alert, normal mood/affect, oriented x 3 Skin: other (Wrinkled and consistent with water log type to look on the bottom of left foot) Procedures/Interventions Suture Size: 5-0 Progress/Results/Core Measures Progress Progress Note : Progress Note Patient with skin breakdown consistent with being in a moist environment. Discussed with him supportive care including moisture wicking socks, foot powders, rotating footwear, antiperspirant spray.. Departure Impression Primary Impression: Excessive sweating, local Disposition: 01 HOME, SELF-CARE Condition: Stable Departure-Patient Inst. Referrals: [facility] (PCP/Family) Primary Care Physician Patient Instructions: Athlete's Foot (DC) Add. Discharge Instructions: Please consider a foot antiperspirant spray or gel. Antimoisture/wicking sock, frequent changing of footwear as needed. Please follow-up with caravan park and camping ground manager or primary care provider if symptoms continue. All discharge instructions reviewed with patient and/or family. Voiced understanding. KIKE KEITA DO Oct 14, 2022 21:45
[2022-10-14 22:14] VITALS: BP 121/68
== END 2022-10-14 22:14 | disposition home or self-care (01) ==
LOC: EDUNIT# 21:34 → ER 21:38
DX: L74.519 Primary focal hyperhidrosis, unspecified (principal)
CPT/HCPCS: 99281